=== PATIENT | male | born 1965 | race Caucasian/White ===

== ENCOUNTER 2017-01-29 02:42 | Emergency (ER) | payer OTHER ==
[2017-01-29] MEDS ORDERED: Famotidine 20 MG/2 ML SDV IVPUSH ONE (03:08)
[2017-01-29] MEDS ORDERED: Sodium Chloride 0.9% 10 ML Syringe FLUSH PRN (03:08)
--- NOTE | 2017-01-29 03:08 | EDM.PDOC ---
ED HPI GENERAL MEDICAL PROBLEM - General Chief Complaint: General Stated Complaint: 'heart racing' Time Seen by Provider: 01/29/17 03:00 Source of Information: Reports: Patient, Family (), Old Records ([facility] chart/EMR) History Limitations: Reports: No Limitations - History of Present Illness INITIAL COMMENTS - FREE TEXT/NARRATIVE: Patient was brought to the emergency room via private automobile by his for evaluation of sudden onset tachycardia with symptoms waking him up at about 01:30 a.m. this morning. His tachycardia lasted for about 1-1/2 hours and had resolved immediately prior to arrival to our facility. He has had similar type symptoms for the last 1-2 weeks with increased frequency during the last 3-4 days with symptoms occurring on a daily basis and lasting between 10 minutes and 4 hours at a time. He did have an episode of tachycardia on 12/06/15 secondary to stress factors with evaluation in this facility by me at that time. The patient denies any chest pain/pressure, dizziness, orthostasis, orthopnea, diaphoresis, paresthesias, recent decreased exercise tolerance, or any other anginal-type symptoms either today or with any of the episodes during the last couple of weeks. He has not used any recent cold preparations, increased his caffeine intake, etc.. Patient has had problems with nonspecific headaches since 12/25/16 with previous extensive workup as below, however no headache this evening. No recent history of abdominal pain, heartburn, nausea, diarrhea, melena, gross hematochezia, or any food intolerance, including fatty foods, etc.. The patient also denies any recent fever, cough, wheezing, dyspnea , etc.. Note that a cardiac murmur was diagnosed about 3 weeks ago with echocardiogram conducted yesterday in this facility Onset: Today, Sudden Onset Date: 01/29/17 Onset Time: 01:30 Duration: Resolved Prior to Arrival Location: Reports: Other (No pain) Improves with: Reports: None Worsens with: Reports: None Context: Reports: Other (As above) Associated Symptoms: Denies: Confusion, Chest Pain, Cough, Diaphoresis, Fever/ Chills, Headaches, Loss of Appetite, Malaise, Nausea/Vomiting, Rash, Seizure, Shortness of Breath, Syncope, Weakness Treatments LICENSED HOME INSPECTOR: Reports: Other (see below) (None) - Related Data Allergies Allergy/AdvReac Type Severity Reaction Status Date / Time No Known Allergies Allergy Verified 01/29/17 02:47 Home Meds: Home Meds Cyanocobalamin (Vitamin B12) [Vitamin B12] 1,000 mcg PO DAILY 12/06/15 [History] Simvastatin [Zocor] 20 mg PO BEDTIME 12/06/15 [History] Levothyroxine Sodium [Synthroid] 137 mcg PO ACBREAKFAST #60 tab 12/07/15 [Rx] Past Medical History HEENT History: Reports: Allergic Rhinitis. Denies: Cataract, Glaucoma, Hard of Hearing, Head, Impaired Vision, Macular Degeneration, Retinal Detachment Cardiovascular History: Reports: Arrhythmia, Heart Murmur, High Cholesterol, Hypertension, Other (See Below). Denies: Afib, Aneurysm, Blood Clots/VTE/DVT, CAD, Heart Failure, NE, PVD, Syncope Other Cardiovascular History: First degree AV block, incomplete right bundle- branch block, PVCs, dyslipidemia, varicose veins, heart murmur diagnosed in November 2016 Respiratory History: Reports: COPD, Other (See Below). Denies: Asthma, Intubation, Difficult, Intubation, Previous, PE, Pneumothorax, Sleep Apnea Other Respiratory History: COPD by chest x-ray Gastrointestinal History: Reports: Gastritis, Hemorrhoids, PUD, Other (See Below ). Denies: Celiac Disease, Cholelithiasis, Chronic Constipation, Chronic Diarrhea, Colon Polyp, Fecal Incontinence, GERD, GI Bleed, Hepatitis, Hiatal Hernia, Inflammatory Bowel Disease, Irritable Bowel Syndrome, Jaundice, Pancreatitis Other Gastrointestinal History: History of benign gastric mass/carcinoid with ulceration by EGD on 11/21/06 with additional gastritis noted Genitourinary History: Reports: None. Denies: BPH, Chronic Renal Insuffiency, Renal Calculus, STD, Urinary Incontinence, UTI, Recurrent Musculoskeletal History: Reports: Back Pain, Chronic, Fracture, Neck Pain, Chronic, Osteoarthritis, Other (See Below). Denies: Arthritis, Gout, RA, SLE Other Musculoskeletal History: Distal Phalangeal fractures of digits #1 and 2 of the right foot on 12/13/10, L1-L3 disc herniations, lumbarization of S1 Neurological History: Reports: Headaches, Chronic, Other (See Below). Denies: Cerebral Aneurysms, Concussion, CVA, Head Trauma, Migraines, MS, Seizure, TIA, Vertigo Other Neuro History: History of refractory chronic headaches/tension headaches since 12/25/16 with extensive previous workup including CT scans, MRI/MRA and neurological consultation Psychiatric History: Reports: Anxiety, Depression. Denies: Abuse, Victim of, ADD, ADHD, Addiction, Psych Hospitalization(s), PTSD, Suicide Attempt, Suicidal Ideation Endocrine/Metabolic History: Reports: Hypothyroidism. Denies: Diabetes, Type I , Diabetes, Type II, IDDM Hematologic History: Reports: B12 Deficiency. Denies: Anemia, Blood Transfusion (s) Immunologic History: Reports: None. Denies: AIDS, SLE Oncologic (Cancer) History: Reports: None. Denies: Basal Cell Carcinoma, Hodgkin's Lymphoma, Leukemia, Lymphoma, Malignant Melanoma, Non-Hodgkin's Lymphoma Dermatologic History: Reports: None. Denies: Eczema, Psoriasis - Infectious Disease History Infectious Disease History: Reports: Chicken Pox. Denies: C-Difficile, Measles , Meningitis, Mononucleosis, MRSA, Mumps, Pertussis (Whooping Cough), Rubella, Scarlet Fever, Shingles, VRE - Past Surgical History Head Surgeries/Procedures: Reports: None HEENT Surgical History: Reports: Oral Surgery, Other (See Below). Denies: Adenoidectomy, Cataract Surgery, Eye Surgery, Laser Surgery, LASIK, Myringotomy w Tube(s), Naso-Sinus Surgery, Tonsillectomy Other HEENT Surgeries/Procedures: [place] teeth extraction 4 at about age 28 Cardiovascular Surgical History: Reports: None. Denies: Varicose, Vascular Surgery Respiratory Surgical History: Reports: None. Denies: Thoracentesis GI Surgical History: Reports: Appendectomy, Colonoscopy, EGD, Hernia, Inguinal, Other (See Below) Other GI Surgeries/Procedures: Last EGD and colonoscopy in November 2016 with previous evaluation on 11/21/06, right inguinal hernia repair in about 1987, appendectomy in June 1988, abdominal exploratory surgery in 2006 for gastric carcinoid removal which was actually removed via an EGD Male Surgical History: Reports: Circumcision, Other (See Below) Other Male Surgeries/Procedures: Circumcision as an Endocrine Surgical History: Reports: None. Denies: Thyroid Biopsy Neurological Surgical History: Reports: None. Denies: C-Spine, Discectomy, Intracranial, Laminectomy, Lumbar Spine, Spinal Fusion, Vertebroplasty Musculoskeletal Surgical History: Reports: None. Denies: Arthroscopic Procedure , Carpal Tunnel, Ganglion Cyst, Joint Replacement, ORIF, Shoulder Surgery Oncologic Surgical History: Reports: None Dermatological Surgical History: Reports: None - Past Imaging History Past Imaging History: Reports: Cardiac Echo (01/28/17), CAT Scan (CT of the head on 12/26/16), MRA (MRA/MRI of head, neck, and back in December 2016 as workup for headaches), MRI (As above), PFT (Negative PFTs on 07/04/06), Stress Testing (Negative Cardiolite stress test on 07/18/06 with ejection fraction of 54 %), Ultrasound (Gallbladder ultrasound on 12/08/12) Social & Family History - Family History Cardiac: Reports: Bypass, CAD, High Cholesterol, Hypertension, NE, Other (See Below) Other Cardiac Family History: Father with CABG at age 62, brother with possible NE versus Prinzmetal angina at age 40, 2 paternal uncles with fatal MIs in their 50s to 60s, hypertension and hyperlipidemia in father and brother Neurological: Reports: Other (See Below) Other Neurological Family History: Son with cerebral palsy secondary to prematurity Endocrine/Metabolic: Reports: Diabetes, type II, Hypothyroidism, IDDM, Other ( See Below) Other Endocrine/Metabolic Family History: AODM in father and brother, paternal grandmother with IDDM, sister with hypothyroidism Oncologic: Reports: Breast, Prostate, Skin, Other (See Below) Other Oncologic Family History: Maternal uncle with prostate cancer in his 60s, maternal grandmother with breast cancer in her 60s, father with unknown type of skin cancer at age 67, father with liposarcoma at age 68 which was fatal at age 70 - Tobacco Use Smoking Status *Q: Former Smoker Tobacco Use Within Last Twelve Months: No Years of Tobacco use: 3 Packs/Tins Daily: 1 Used Tobacco, but Quit: Yes Month Tobacco Last Used: One half to one pack per day between ages 15 and 18 Smoking Cessation Information Provided To Patient: No Second Hand Smoke Exposure: No Second Hand Smoke Education Provided: No - Caffeine Use Caffeine Use: Reports: Soda (2 sodas per day). Denies: Coffee, Energy Drinks, Tea - Alcohol Use Alcohol Use History: Yes Days Per Week of Alcohol Use: 1 (No previous DWIs, problems with alcohol abuse, etc.) Number of Drinks Per Day: 3 (Usually beer) Total Drinks Per Week: 3 Alcohol Use in Last Twelve Months: Yes Alcohol Use Frequency: Socially - Recreational Drug Use Recreational Drug Use: No Drug Use in Last 12 Months: No Recreational Drug Type: Denies: Amphetamines (Speed), Cocaine, Heroin, Inhalants (Glues, Solvents, Aerosols), LSD (Acid), Marijuana/Hashish, Methamphetamine, Morphine - Living Situation & Occupation Living situation: Reports: (1987, 2 children), with Family () 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 Denies: Fever, Chills, Malaise, Weakness, Fatigue, Night Sweats, Diaphoresis, Decreased Appetite, Weight Gain HEENT: Reports: No Symptoms. Denies: Contact Lenses, Dental Pain, Ear Pain, Eye Discharge, Glasses, Hearing Loss, Nose Pain, Rhinitis, Sinus Problem, Throat Pain, Throat Swelling, Vertigo, Vision Change Respiratory: Reports: No Symptoms. Denies: Shortness of Breath, Wheezing, Pleuritic Chest Pain, Cough Cardiovascular: Reports: Palpitations. Denies: Chest Pain, Blood Pressure Problem, Dyspnea on Exertion, Edema, Lightheadedness, Orthopnea, PND, Syncope Endocrine: Reports: No Symptoms. Denies: Fatigue GI/Abdominal: Reports: No Symptoms. Denies: Abdominal Pain, Anorexia, Black Stool, Bloody Stool, Constipation, Diarrhea, Decreased Appetite, Difficulty Swallowing, Distension, Flatus, Hematemesis, Hematochezia, Melena, Nausea, Stool Incontinence, Vomiting : Reports: No Symptoms. Denies: Discharge, Dysuria, Flank Pain, Frequency, Hematuria, Incontinence, Pain, Urinary Retention Musculoskeletal: Reports: No Symptoms. Denies: Neck Pain, Shoulder Pain, Arm Pain, Back Pain, Leg Pain, Joint Swelling Skin: Reports: Rash (Nonspecific white patchy rash on face during the last week) . Denies: Cyanosis, Jaundice, Mottled, Diaphoresis, Wound Neurological: Reports: No Symptoms. Denies: Confusion, Dizziness, Headache, Numbness, Paresthesia, Seizure, Syncope, Tingling, Trouble Speaking, Difficulty Walking, Weakness, Change in Speech Psychiatric: Reports: Anxiety, Depression. Denies: Agitation, Confusion, Hallucinations, Suicidal Ideation Hematologic/Lymphatic: Reports: No Symptoms Immunologic: Reports: No Symptoms ED EXAM, GENERAL - Physical Exam Exam: See Below Exam Limited By: No Limitations General Appearance: Alert, WD/WN, No Apparent Distress, Anxious (Mild to moderate) Eye Exam: Bilateral Eye: EOMI, Normal Inspection (No nystagmus), PERRL Ears: Normal External Exam, Normal Canal, Hearing Grossly Normal, Normal TMs Nose: Normal Inspection, Normal Mucosa, No Blood Throat/Mouth: Normal Inspection, Normal Lips, Normal Teeth, Normal Gums, Normal Oropharynx, Normal Voice, No Airway Compromise. No: Dysphagia, Perioral Cyanosis Head: Atraumatic, Normocephalic. No: Facial Swelling, Facial Tenderness, Sinus Tenderness Neck: Supple, Non-Tender, Full Range of Motion, Carotid Bruit (Mild bilateral carotid bruits versus transmitted heart sounds). No: Lymphadenopathy (L), Lymphadenopathy (R), Thyromegaly Respiratory/Chest: No Respiratory Distress, Lungs Clear, Normal Breath Sounds, No Accessory Muscle Use, Chest Non-Tender. No: Pleural Rub, Retractions Cardiovascular: Normal Peripheral Pulses, Regular Rate, Rhythm, No Edema, No Gallop, No JVD, No Rub, Systolic Murmur (1/6 SULEIMAN of the aortic and mitral valves ). No: Gallop/S3, Gallop/S4, Friction Rub Peripheral Pulses: 2+: Radial (L), Radial (R), Dorsalis Pedis (L), Dorsalis Pedis (R) GI/Abdominal: Normal Bowel Sounds, Soft, Non-Tender, No Organomegaly, No Distention, No Abnormal Bruit, No Mass, Pelvis Stable, Other (Large midline abdominal scar). No: Guarding (Male) Exam: Deferred Rectal (Males) Exam: Deferred Back Exam: Normal Inspection, Full Range of Motion. No: CVA Tenderness (L), CVA Tenderness (R), Muscle Spasm Extremities: Normal Inspection, Normal Range of Motion, Non-Tender, No Pedal Edema, Normal Capillary Refill. No: Merry's Sign Neurological: Alert, Oriented, CN II-XII Intact, Normal Cognition, Normal Gait, Normal Reflexes (Negative Babinski's), No Motor/Sensory Deficits Psychiatric: Anxious (Mild to moderate), Depressed Mood (Borderline) Skin Exam: Warm, Dry, Intact, Normal Color, No Rash Lymphatic: No Adenopathy EKG INTERPRETATION EKG Date: 01/29/17 Time: 03:15 Rhythm: NSR Rate (Beats/Min): 80 Levan: Normal (Left cardiac axis) P-Wave: Present (Mild diffuse biphasic P waves with poor R-wave progression in the anterior leads) QRS: Wide (QRS interval of 0.10 seconds representing repolarization changes with T-wave inversion in leads 3 and V1 with possible left ventricular hypertrophy by voltage) ST-T: Normal QT: Normal MI/PQ Interval: 0.17 seconds Comparison: No Change (Since last EKG on 12/06/15) EKG Interpretation Comments: 1. No acute ischemic changes 2. Repolarization changes 3. Left ventricular hypertrophy by voltage Course - Vital Signs Last Recorded V/S: Last Vital Signs Temp 36.6 C 01/29/17 02:43 Pulse 84 01/29/17 03:45 Resp 16 01/29/17 03:45 BP 144/94 H 01/29/17 03:45 Pulse Ox 98 01/29/17 03:45 - Orders/Labs/Meds Orders: Active Orders 24 hr Category Date Time Status Cardiac Monitoring [RC] . DIRECTED Care 01/29/17 03:08 Active EKG Documentation Completion [RC] ASDIRECTED Care 01/29/17 03:08 Active Peripheral IV Care [RC] . DIRECTED Care 01/29/17 03:08 Active Pulse Oximetry [RC] CONTINUOUS Care 01/29/17 03:08 Active Up With Assistance [RC] PFP Care 01/29/17 03:08 Active Vital Signs [RC] PFP Care 01/29/17 03:08 Active Nothing per Oral Now Diet [DIET] Diet 01/29/17 Breakfast Active Chest 1V Frontal [CR] Stat Exams 01/29/17 03:08 Ordered Sodium Chloride 0.9% [Saline Flush] Med 01/29/17 03:08 Active 10 ml FLUSH ASDIRECTED PRN Obtain Past Medical Record [OM.PC] Urgent Oth 01/29/17 03:08 Active Peripheral IV Insertion Adult [OM.PC] Stat Oth 01/29/17 03:08 Ordered Resuscitation Status Stat Resus Stat 01/29/17 03:08 Ordered EKG 12 Lead [EK] Stat Ther 01/29/17 03:08 Ordered Medication Orders Sodium Chloride (Saline Flush) 10 ml FLUSH ASDIRECTED PRN PRN Reason: Keep Vein Open Last Admin: 01/29/17 03:33 Dose: 10 ml Labs: Laboratory Tests 01/29/17 01/29/17 01/29/17 Range/Units 03:08 03:15 03:15 WBC 6.7 (4.0-10.2) K/uL RBC 4.43 (4.33-5.41) M/uL Hgb 14.1 (13.1-16.8) g/dL Hct 39.6 (39.0-49.0) % MCV 89.4 (84.0-98.0) fL MCH 31.8 (28.2-33.3) pg MCHC 35.6 (31.7-36.0) g/dL RDW 12.6 (11.2-14.1) % Plt Count 214 (150-350) K/uL Neut % (Auto) 55.3 (45.0-80.0) % Lymph % (Auto) 29.6 (10.0-50.0) % [place] % (Auto) 10.0 (2.0-14.0) % Eos % (Auto) 4.2 (0.0-5.0) % Baso % (Auto) 0.9 (0.0-2.0) % Neut # (Auto) 3.72 (1.40-7.00) K/uL Lymph # (Auto) 1.99 (0.50-3.50) K/uL [place] # (Auto) 0.67 (0.00-1.00) K/uL Eos # (Auto) 0.28 (0.00-0.50) K/uL Baso # (Auto) 0.06 (0.00-0.20) K/uL PT 11.7 (9.8-11.7) SEC INR 1.1 APTT 26.5 (22.1-29.8) SEC D-Dimer, Quantitative (0-400) ng/mL Sodium 143 (136-145) mmol/L Potassium 3.5 (3.5-5.1) mmol/L Chloride 106 (98-107) mmol/L Carbon Dioxide 26.3 (21.0-32.0) mmol/L BUN 15 (7-18) mg/dL Creatinine 1.03 (0.51-1.17) mg/dL Est Cr Clr Drug Dosing 91.04 mL/min Estimated GFR (MDRD) > 60 mL/min Glucose 88 (74-106) mg/dL Lactic Acid (0.4-2.0) mmol/L Uric Acid 5.6 (2.6-7.2) mg/dL Calcium 8.7 (8.5-10.1) mg/dL Magnesium 2.0 (1.8-2.4) mg/dL Total Bilirubin 0.3 (0.2-1.0) mg/dL AST 14 L (15-37) U/L ALT 22 (12-78) U/L Alkaline Phosphatase 80 (46-116) IU/L Creatine Kinase 108 (26-308) U/L Creatine Kinase Index 0.9 (0.0-2.5) % CK-MB (CK-2) 1.00 (0.00-3.60) ng/mL Troponin I 0.000 (0.000-0.056) ng/mL NT-Pro-B Natriuret Pep 36 (0-125) pg/mL Total Protein 7.0 (6.4-8.2) g/dL Albumin 3.6 (3.4-5.0) g/dL TSH, Ultra Sensitive 4.564 H (0.358-3.740) mIU/mL Ethyl Alcohol 0.011 (0.000-0.080) g/dL 01/29/17 01/29/17 Range/Units 03:15 03:30 WBC (4.0-10.2) K/uL RBC (4.33-5.41) M/uL Hgb (13.1-16.8) g/dL Hct (39.0-49.0) % MCV (84.0-98.0) fL MCH (28.2-33.3) pg MCHC (31.7-36.0) g/dL RDW (11.2-14.1) % Plt Count (150-350) K/uL Neut % (Auto) (45.0-80.0) % Lymph % (Auto) (10.0-50.0) % [place] % (Auto) (2.0-14.0) % Eos % (Auto) (0.0-5.0) % Baso % (Auto) (0.0-2.0) % Neut # (Auto) (1.40-7.00) K/uL Lymph # (Auto) (0.50-3.50) K/uL [place] # (Auto) (0.00-1.00) K/uL Eos # (Auto) (0.00-0.50) K/uL Baso # (Auto) (0.00-0.20) K/uL PT (9.8-11.7) SEC INR APTT (22.1-29.8) SEC D-Dimer, Quantitative < 100 (0-400) ng/mL Sodium (136-145) mmol/L Potassium (3.5-5.1) mmol/L Chloride (98-107) mmol/L Carbon Dioxide (21.0-32.0) mmol/L BUN (7-18) mg/dL Creatinine (0.51-1.17) mg/dL Est Cr Clr Drug Dosing mL/min Estimated GFR (MDRD) mL/min Glucose (74-106) mg/dL Lactic Acid 1.7 (0.4-2.0) mmol/L Uric Acid (2.6-7.2) mg/dL Calcium (8.5-10.1) mg/dL Magnesium (1.8-2.4) mg/dL Total Bilirubin (0.2-1.0) mg/dL AST (15-37) U/L ALT (12-78) U/L Alkaline Phosphatase (46-116) IU/L Creatine Kinase (26-308) U/L Creatine Kinase Index (0.0-2.5) % CK-MB (CK-2) (0.00-3.60) ng/mL Troponin I (0.000-0.056) ng/mL NT-Pro-B Natriuret Pep (0-125) pg/mL Total Protein (6.4-8.2) g/dL Albumin (3.4-5.0) g/dL TSH, Ultra Sensitive (0.358-3.740) mIU/mL Ethyl Alcohol (0.000-0.080) g/dL Meds: Medications Generic Name Dose Route Start Last Admin Trade Name Freq PRN Reason Stop Dose Admin Sodium Chloride 10 ml 10/31/17 03:08 01/29/17 03:33 Saline Flush FLUSH 10 ml ASDIRECTED PRN Administration Keep Vein Open Discontinued Medications Generic Name Dose Route Start Last Admin Trade Name Josselyn PRN Reason Stop Dose Admin Famotidine 40 mg 01/29/17 03:08 01/29/17 03:32 Pepcid IVPUSH 01/29/17 03:09 Not Given ONETIME ONE - Radiology Interpretation Free Text/Narrative:: monitoring manager shows normal sinus rhythm with heart rate in the 70s to 80s with no ectopy or arrhythmia Chest x-ray, portable, shows evidence of borderline pulmonary obstructive disease with possible pulmonary hypertension versus centralized CHF. No pulmonary infiltrates, cardiomegaly, pneumothorax, or CHF. Mild prominence of the proximal aortic arch. Departure - Departure Time of Disposition: 04:25 Disposition: Home, Self-Care 01 Condition: Good Clinical Impression: Tachycardia, Dyslipidemia, Hypothyroidism (acquired), Mixed anxiety depressive disorder, Cardiac murmur Hypertension Qualifiers: Hypertension type: essential hypertension Qualified Code(s): I10 - Essential ( primary) hypertension COPD (chronic obstructive pulmonary disease) Qualifiers: COPD type: emphysema Emphysema type: panlobular Qualified Code(s): J43.1 - Panlobular emphysema Osteoarthritis Qualifiers: Osteoarthritis location: multiple joints Osteoarthritis type: primary Qualified Code(s): M15.0 - Primary generalized (osteo)arthritis Tension headache, chronic Qualifiers: Intractability: not intractable Qualified Code(s): G44.229 - Chronic tension- type headache, not intractable - Discharge Information Referrals: Danielle Christopher PA-C [Primary Care Provider] - Forms: ED Department Discharge Additional Instructions: 1. Followup with your regular provider in 7-10 days as directed for reevaluation and recommendation of possible increase of your current Synthroid therapy, trial with low-dose Tenormin for your blood pressure and fast heart rate, and further blood studies for your previous carcinoid tumor secondary to recent chronic headaches. 2. Fall and injury precautions as discussed 3. Verify that all your providers including neurologist, etc. are aware of your previous carcinoid diagnosis - Problem List & Annotations (1) Tachycardia SNOMED Code(s): 9937879 Code(s): R00.0 - TACHYCARDIA, UNSPECIFIED Status: Acute Priority: High Current Visit: Yes Onset Date: 12/07/15 Annotation/Comment:: No evidence of arrhythmia during observation in this facility. TSH is mildly elevated as below. Various therapeutic options were discussed with the patient, including initiation of low-dose Tenormin secondary to his newly diagnosed cardiac murmur and recurrent tachycardia as above. He did not wish to initiate any additional medical therapy at this time, although this will be considered at his follow-up visit with his regular provider as per discharge instructions. Further workup, including Holter monitor versus event monitor, repeat Cardiolite stress test, cardiology referral, etc. depending on his clinical course. He does have a strong family history of heart disease. Also note that he does have a previous history of benign carcinoid tumor with consideration of further workup, including blood studies, etc. especially in light of his problems with recent headaches, tachycardia, etc. (2) Cardiac murmur SNOMED Code(s): 67506871 Code(s): R01.1 - CARDIAC MURMUR, UNSPECIFIED Status: Chronic Priority: Medium Current Visit: Yes Annotation/Comment:: Probable aortic valve stenosis and mitral valve insufficiency by clinical exam with echocardiogram performed on 01/28/17 with results pending at this time. Continue close follow- up by her regular providers (3) Hypertension SNOMED Code(s): 23381801 Code(s): I10 - ESSENTIAL (PRIMARY) HYPERTENSION Status: Acute Priority: Medium Current Visit: Yes Onset Date: 12/06/15 Annotation/Comment:: Note previous history of hypertension, however no previous medical therapy. Low-dose Tenormin recommended as above. Moderately elevated blood pressures today in the emergency room possibly secondary to his anxiety. Continue to observe his blood pressures closely by his regular providers Qualifiers: Hypertension type: essential hypertension Qualified Code(s): I10 - Essential (primary) hypertension (4) Mixed anxiety depressive disorder SNOMED Code(s): 800525303 Code(s): F41.8 - OTHER SPECIFIED ANXIETY DISORDERS Status: Acute Priority : High Current Visit: Yes Onset Date: 12/06/15 Annotation/Comment:: The patient may benefit from medical treatment both for treatment of his anxiety depression and as prophylaxis for his chronic tension headaches. He is under significant increased stress secondary to his recent headaches, including missing work. Patient did not wish to start any additional medications at this time, however does agree to discuss this with his regular provider. Emotional support was provided. (5) Tension headache, chronic Status: Chronic Priority: Medium Current Visit: Yes Onset Date: 12/25/16 Annotation/Comment:: History of refractory chronic probable tension headaches since November with extensive recent negative workup, including multiple MRI/ MRAs, neurology consultation, etc. as above. Headaches seem to have improved over the last week with patient able to return to work with no headache today. He agrees to notify his neurologist concerning his previous carcinoid diagnosis. Continue to observe closely by his regular providers, etc.. He may benefit from prophylactic headache medications including anti-anxiety/ antidepressant medication, low-dose Tenormin, etc. Qualifiers: Intractability: not intractable Qualified Code(s): G44.229 - Chronic tension-type headache, not intractable (6) COPD (chronic obstructive pulmonary disease) SNOMED Code(s): 52500030 Code(s): J44.9 - CHRONIC OBSTRUCTIVE PULMONARY DISEASE, UNSPECIFIED Status : Chronic Priority: Medium Current Visit: Yes Annotation/Comment:: No recent fever, bronchitic-type symptoms, etc. Patient has not needed any type of therapy in the past. Note previous negative PFTs despite chest x-ray findings. Continue to observe for now Qualifiers: COPD type: emphysema Emphysema type: panlobular Qualified Code(s): J43.1 - Panlobular emphysema (7) Dyslipidemia SNOMED Code(s): 092549044 Code(s): E78.5 - HYPERLIPIDEMIA, UNSPECIFIED Status: Chronic Priority: Medium Current Visit: Yes Annotation/Comment:: Continue current medical therapy (8) Hypothyroidism (acquired) SNOMED Code(s): 076750911 Code(s): E03.9 - HYPOTHYROIDISM, UNSPECIFIED Status: Chronic Priority: Medium Current Visit: Yes Annotation/Comment:: TSH somewhat elevated today. Synthroid should be increased somewhat, which would also be beneficial for his anxiety depression disorder. He did not wish to have any medication changes at this time with this to be discussed further at his follow-up visit as per discharge instructions (9) Osteoarthritis SNOMED Code(s): 851050972 Code(s): M19.90 - UNSPECIFIED OSTEOARTHRITIS, UNSPECIFIED SITE Status: Chronic Priority: Medium Current Visit: Yes Annotation/Comment:: Stable by history Qualifiers: Osteoarthritis location: multiple joints Osteoarthritis type: primary Qualified Code(s): M15.0 - Primary generalized (osteo)arthritis - Problem List Review Problem List Initiated/Reviewed/Updated: Yes - My Orders Last 24 Hours: My Active Orders 01/29/17 03:08 Cardiac Monitoring [RC] . DIRECTED EKG Documentation Completion [RC] ASDIRECTED Peripheral IV Care [RC] . DIRECTED Pulse Oximetry [RC] CONTINUOUS Up With Assistance [RC] PFP Vital Signs [RC] PFP Chest 1V Frontal [CR] Stat Sodium Chloride 0.9% [Saline Flush] 10 ml FLUSH ASDIRECTED PRN Obtain Past Medical Record [OM.PC] Urgent Peripheral IV Insertion Adult [OM.PC] Stat Resuscitation Status Stat EKG 12 Lead [EK] Stat 01/29/17 Breakfast Nothing per Oral Now Diet [DIET] - Assessment/Plan Last 24 Hours: My Active Orders 01/29/17 03:08 Cardiac Monitoring [RC] . DIRECTED EKG Documentation Completion [RC] ASDIRECTED Peripheral IV Care [RC] . DIRECTED Pulse Oximetry [RC] CONTINUOUS Up With Assistance [RC] PFP Vital Signs [RC] PFP Chest 1V Frontal [CR] Stat Sodium Chloride 0.9% [Saline Flush] 10 ml FLUSH ASDIRECTED PRN Obtain Past Medical Record [OM.PC] Urgent Peripheral IV Insertion Adult [OM.PC] Stat Resuscitation Status Stat EKG 12 Lead [EK] Stat 01/29/17 Breakfast Nothing per Oral Now Diet [DIET] Assessment:: As above Plan: As above. Extensive precautions were given to the patient and his , who are in agreement with the treatment plan. See Patient Instructions for further treatment and plan.
[2017-01-29 03:46] LABS: CHLORIDE,CL 106 mmol/L (98-107); SODIUM,NA 143 mmol/L (136-145)
[2017-01-29 05:08] VITALS: BP 137/90
== END 2017-01-29 04:20 | disposition home or self-care (01) ==
LOC: LL.ED 02:42
DX: R00.0 Tachycardia, unspecified (principal); E78.5 Hyperlipidemia, unspecified; E03.9 Hypothyroidism, unspecified; F41.8 Other specified anxiety disorders; R01.1 Cardiac murmur, unspecified; I10 Essential (primary) hypertension; J43.9 Emphysema, unspecified; M15.0 Primary generalized (osteo)arthritis; G44.229 Chronic tension-type headache, not intractable; Z87.891 Personal history of nicotine dependence
CPT/HCPCS: 36000; 36415; 71010; 80053; 82550; 82553; 83605; 83735; 83880; 84443; 84484; 84550; 85025; 85379; 85610; 85730; 93005; 99285; G0480; J7050

== ENCOUNTER 2019-06-28 12:20 | Observation (INO) | payer BC, OTHER ==
--- NOTE | 2019-06-28 13:25 | EDM.PDOC ---
ED HPI GENERAL MEDICAL PROBLEM - General Chief Complaint: General Stated Complaint: weakness, tongue swelling Time Seen by Provider: 06/28/19 12:57 Source of Information: Reports: Patient History Limitations: Reports: No Limitations - History of Present Illness INITIAL COMMENTS - FREE TEXT/NARRATIVE: Patient comes to ER with complaint of headache/weakness/muscle aches. Headache started last night. Developed sores along sides of tongue this morning. No one else sick at home. No fevers/chills. No ear pain/sore throat/nasal congestion. No cough/wheeze/SOB/respiratory changes. No chest pain/palpitations. No GI changes/nausea/emesis/loose stools. Ate breakfast this morning. No changes. No focal neuro changes/one sided weakness/paresthesias. Took Claritin prior to arrival. calves,lower back,togue Pain Score (Numeric/FACES): 5 - Related Data Allergies Allergy/AdvReac Type Severity Reaction Status Date / Time No Known Allergies Allergy Verified 06/28/19 12:29 Home Meds: Home Meds Cyanocobalamin (Vitamin B12) [Vitamin B12] 1,000 mcg PO DAILY 12/06/15 [History] Simvastatin [Zocor] 20 mg PO BEDTIME 12/06/15 [History] Acetaminophen [Tylenol] 650 mg PO Q6HR PRN 06/28/19 [History] Levothyroxine Sodium [Synthroid] 125 mcg PO DAILY 06/28/19 [History] Richardson-3/DHA/Epa/Fish Oil [Fish Oil 1,000 mg Softgel] 1 each PO DAILY 06/28/19 [ History] Past Medical History HEENT History: Reports: Allergic Rhinitis. Denies: Cataract, Glaucoma, Hard of Hearing, Head, Impaired Vision, Macular Degeneration, Retinal Detachment Cardiovascular History: Reports: Arrhythmia, Heart Murmur, High Cholesterol, Hypertension, Other (See Below). Denies: Afib, Aneurysm, Blood Clots/VTE/DVT, CAD, Heart Failure, MD, PVD, Syncope Other Cardiovascular History: First degree AV block, incomplete right bundle- branch block, PVCs, dyslipidemia, varicose veins, heart murmur diagnosed in November 2016 Respiratory History: Reports: COPD, Other (See Below). Denies: Asthma, Intubation, Difficult, Intubation, Previous, PE, Pneumothorax, Sleep Apnea Other Respiratory History: COPD by chest x-ray Gastrointestinal History: Reports: Gastritis, Hemorrhoids, PUD, Other (See Below ). Denies: Celiac Disease, Cholelithiasis, Chronic Constipation, Chronic Diarrhea, Colon Polyp, Fecal Incontinence, GERD, GI Bleed, Hepatitis, Hiatal Hernia, Inflammatory Bowel Disease, Irritable Bowel Syndrome, Jaundice, Pancreatitis Other Gastrointestinal History: History of benign gastric mass/carcinoid with ulceration by EGD on 11/21/06 with additional gastritis noted Genitourinary History: Reports: None. Denies: BPH, Chronic Renal Insuffiency, Renal Calculus, STD, Urinary Incontinence, UTI, Recurrent Musculoskeletal History: Reports: Back Pain, Chronic, Fracture, Neck Pain, Chronic, Osteoarthritis, Other (See Below). Denies: Arthritis, Gout, RA, SLE Other Musculoskeletal History: Distal Phalangeal fractures of digits #1 and 2 of the right foot on 12/13/10, L1-L3 disc herniations, lumbarization of S1 Neurological History: Reports: Headaches, Chronic, Other (See Below). Denies: Cerebral Aneurysms, Concussion, CVA, Head Trauma, Migraines, MS, Seizure, TIA, Vertigo Other Neuro History: History of refractory chronic headaches/tension headaches since 12/25/16 with extensive previous workup including CT scans, MRI/MRA and neurological consultation Psychiatric History: Reports: Anxiety, Depression. Denies: Abuse, Victim of, ADD, ADHD, Addiction, Psych Hospitalization(s), PTSD, Suicide Attempt, Suicidal Ideation Endocrine/Metabolic History: Reports: Hypothyroidism. Denies: Diabetes, Type I , Diabetes, Type II, IDDM Hematologic History: Reports: B12 Deficiency. Denies: Anemia, Blood Transfusion (s) Immunologic History: Reports: None. Denies: AIDS, SLE Oncologic (Cancer) History: Reports: None. Denies: Basal Cell Carcinoma, Hodgkin's Lymphoma, Leukemia, Lymphoma, Malignant Melanoma, Non-Hodgkin's Lymphoma Dermatologic History: Reports: None. Denies: Eczema, Psoriasis - Infectious Disease History Infectious Disease History: Reports: Chicken Pox. Denies: C-Difficile, Measles , Meningitis, Mononucleosis, MRSA, Mumps, Pertussis (Whooping Cough), Rubella, Scarlet Fever, Shingles, VRE - Past Surgical History Head Surgeries/Procedures: Reports: None HEENT Surgical History: Reports: Oral Surgery, Other (See Below). Denies: Adenoidectomy, Cataract Surgery, Eye Surgery, Laser Surgery, LASIK, Myringotomy w Tube(s), Naso-Sinus Surgery, Tonsillectomy Other HEENT Surgeries/Procedures: [place] teeth extraction 4 at about age 28 Cardiovascular Surgical History: Reports: None. Denies: Varicose, Vascular Surgery Respiratory Surgical History: Reports: None. Denies: Thoracentesis GI Surgical History: Reports: Appendectomy, Colonoscopy, EGD, Hernia, Inguinal, Other (See Below) Other GI Surgeries/Procedures: Last EGD and colonoscopy in November 2016 with previous evaluation on 11/21/06, right inguinal hernia repair in about 1987, appendectomy in June 1988, abdominal exploratory surgery in 2006 for gastric carcinoid removal which was actually removed via an EGD Male Surgical History: Reports: Circumcision, Other (See Below) Other Male Surgeries/Procedures: Circumcision as an Endocrine Surgical History: Reports: None. Denies: Thyroid Biopsy Neurological Surgical History: Reports: None. Denies: C-Spine, Discectomy, Intracranial, Laminectomy, Lumbar Spine, Spinal Fusion, Vertebroplasty Musculoskeletal Surgical History: Reports: None. Denies: Arthroscopic Procedure , Carpal Tunnel, Ganglion Cyst, Joint Replacement, ORIF, Shoulder Surgery Oncologic Surgical History: Reports: None Dermatological Surgical History: Reports: None - Past Imaging History Past Imaging History: Reports: Cardiac Echo (01/28/17), CAT Scan (CT of the head on 12/26/16), MRA (MRA/MRI of head, neck, and back in December 2016 as workup for headaches), MRI (As above), PFT (Negative PFTs on 07/04/06), Stress Testing (Negative Cardiolite stress test on 07/18/06 with ejection fraction of 54 %), Ultrasound (Gallbladder ultrasound on 12/08/12) Social & Family History - Family History Cardiac: Reports: Bypass, CAD, High Cholesterol, Hypertension, MD, Other (See Below) Other Cardiac Family History: Father with CABG at age 62, brother with possible MD versus Prinzmetal angina at age 40, 2 paternal uncles with fatal MIs in their 50s to 60s, hypertension and hyperlipidemia in father and brother Neurological: Reports: Other (See Below) Other Neurological Family History: Son with cerebral palsy secondary to prematurity Endocrine/Metabolic: Reports: Diabetes, type II, Hypothyroidism, IDDM, Other ( See Below) Other Endocrine/Metabolic Family History: AODM in father and brother, paternal grandmother with IDDM, sister with hypothyroidism Oncologic: Reports: Breast, Prostate, Skin, Other (See Below) Other Oncologic Family History: Maternal uncle with prostate cancer in his 60s, maternal grandmother with breast cancer in her 60s, father with unknown type of skin cancer at age 67, father with liposarcoma at age 68 which was fatal at age 70 - Caffeine Use Caffeine Use: Reports: Soda (2 sodas per day). 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 ED EXAM, GENERAL - Physical Exam Exam: See Below Exam Limited By: No Limitations General Appearance: Alert, WD/WN, No Apparent Distress Eye Exam: Bilateral Eye: EOMI, PERRL Ears: Normal External Exam, Normal Canal Nose: No: Nasal Deformity, Nasal Swelling, Nasal Drainage Throat/Mouth: Normal Lips, Normal Voice, No Airway Compromise, Other (Tongue appears normal size but has linear ulceration/sores along each side of the tongue. Posterior pharanx appears normal. ). No: Inflammation Head: Atraumatic, Normocephalic Neck: Normal Inspection, Supple, Non-Tender, Full Range of Motion Respiratory/Chest: No Respiratory Distress, Lungs Clear, Normal Breath Sounds, No Accessory Muscle Use, Chest Non-Tender Cardiovascular: Regular Rate, Rhythm, No Murmur GI/Abdominal: Normal Bowel Sounds, Soft, Non-Tender, No Distention (Male) Exam: Deferred Rectal (Males) Exam: Deferred Back Exam: Other (mild diffuse tenderness with palpation of soft tissue/muscles) . No: Muscle Spasm, Vertebral Tenderness Extremities: Normal Range of Motion, Normal Capillary Refill, Other (mild tenderness of muscles with palpation diffusely). No: Merry's Sign, Increased Warmth, Mottled, Pallor, Redness Neurological: Alert, Oriented, CN II-XII Intact, Normal Cognition, Normal Gait, No Motor/Sensory Deficits Psychiatric: Normal Affect, Normal Mood Skin Exam: Warm, Dry, Intact, Normal Color EKG INTERPRETATION EKG Date: 06/28/19 Time: 14:03 Rhythm: Other (1 degree AV block) Rate (Beats/Min): 73 [place]: Normal P-Wave: Present QRS: Normal ST-T: Normal QT: Normal Comparison: Other: (similar morphology but now has the 1st degree block) Course - Vital Signs Last Recorded V/S: Last Vital Signs Temp 36.8 C 06/28/19 12:22 Pulse 82 06/28/19 12:22 Resp 18 06/28/19 12:22 BP 139/77 06/28/19 12:22 Pulse Ox 95 06/28/19 12:22 - Orders/Labs/Meds Orders: Active Orders 24 hr Category Date Time Status CBC WITH AUTO DIFF [HEME] Stat Lab 06/28/19 12:46 Ordered COMPREHENSIVE METABOLIC PN,CMP [CHEM] Stat Lab 06/28/19 12:46 Ordered INFLUENZA A+B AG SCREEN [RM] Stat Lab 06/28/19 12:57 Ordered STREP SCRN A RAPID W CULT CONF [RM] Stat Lab 06/28/19 12:58 Ordered UA W/MICROSCOPIC [URIN] Stat Lab 06/28/19 12:46 Ordered Isolation [COMM] Routine Oth 06/28/19 12:58 Ordered Meds: Medications Discontinued Medications Generic Name Dose Route Start Last Admin Trade Name Josselyn PRN Reason Stop Dose Admin Diphenhydramine HCl 50 mg 06/28/19 12:58 Benadryl PO 06/28/19 12:59 ONETIME ONE - Re-Assessments/Exams Free Text/Narrative Re-Assessment/Exam: 06/28/19 13:26 Linear sores noted along sides of tongue could be due to canker/aphthous sores. Linear aspect is more consistent with biting tongue. Patient says these areas feel swollen but no global edema/swelling of tongue appreciated on exam. Anaphylaxis/allergic reaction currently not suspected. Given the global complaints suggestive of developing illness basic labs/influenza/rapid strep requested. Vital signs stable/afebrile. 06/28/19 14:11 [place] code called once it became evident that patient did not know residence/age /year/President during routine questions. Additional labs ordered along with CT of head. By time patient went to CT some of these things were showing improvement. NIHSS = 2 when performed. 03/29/20 14:44 CT of head negative. DDImer elevated. Discussed patient with from [place] [facility] at 1425. He felt that patient likely post-ictal from seizure. Would anticipate sore muscles and headache with seizure. Recommended outpatient evaluation with Neuro along with outpatient contrast MRI of brain and EEG. Plan at this time is to admit patient to observation overnight. Will order lower extremity US bilaterally given elevated DDimer. Patient has no complaint of SOB/chest pain. CT of chest not indicated at this time. MRI truck present tomorrow and it may be possible to obtain MRI study recommended by . Patient to also contact his primary provider's office tomorrow at [place] to arrange for outpatient EEG and referral to Neurology. Will also need MRI referral if we are unable to perform it here tomorrow. Patient later told nurse prior to admission that he was incontinent of small amount of urine this morning. This would also be compatible with seizure event. Departure - Departure Time of Disposition: 14:55 Disposition: Refer to Observation Condition: Good Clinical Impression: First time seizure - Discharge Information *PRESCRIPTION DRUG MONITORING PROGRAM REVIEWED*: Not Applicable *COPY OF PRESCRIPTION DRUG MONITORING REPORT IN PATIENT CAITIE: Not Applicable Referrals: Lorenzo Bledsoe PA-C [Primary Care Provider] - Sepsis Event Note - Evaluation Sepsis Screening Result: No Definite Risk - Focused Exam Vital Signs: Vital Signs Temp Pulse Resp BP Pulse Ox 06/28/19 12:22 36.8 C 82 18 139/77 95 Date Exam was Performed: 06/28/19 Time Exam was Performed: 13:20 - Problem List & Annotations (1) First time seizure SNOMED Code(s): 81252866 Code(s): R56.9 - UNSPECIFIED CONVULSIONS Status: Acute Priority: High Current Visit: Yes Onset Date: ~06/28/19 Annotation/Comment:: Suspected seizure event based on history and presentation/exam. Observe overnight. Will attempt to see if he can have contrast MRI performed tomorrow locally as MRI is here. If not, it will need to be scheduled as an outpatient by primary provider. (2) Elevated d-dimer SNOMED Code(s): 901826892 Code(s): R79.89 - OTHER SPECIFIED ABNORMAL FINDINGS OF BLOOD CHEMISTRY Status: Acute Priority: Medium Current Visit: Yes Annotation/Comment:: No complaints of SOB/chest pain. Has diffuse myalgias in limbs/back that may be secondary to the suspected seizure event. Will order bilateral lower extremity US study for tomorrow. (3) Hypertension SNOMED Code(s): 61832016 Code(s): I10 - ESSENTIAL (PRIMARY) HYPERTENSION Status: Chronic Priority : Low Current Visit: No Onset Date: 12/06/15 Annotation/Comment:: Observe trends Qualifiers: Hypertension type: essential hypertension Qualified Code(s): I10 - Essential (primary) hypertension (4) Dyslipidemia SNOMED Code(s): 688804954 Code(s): E78.5 - HYPERLIPIDEMIA, UNSPECIFIED Status: Chronic Priority: Low Current Visit: No Annotation/Comment:: Continue current medical therapy (5) COPD (chronic obstructive pulmonary disease) SNOMED Code(s): 94999496 Code(s): J44.9 - CHRONIC OBSTRUCTIVE PULMONARY DISEASE, UNSPECIFIED Status : Chronic Priority: Low Current Visit: No Annotation/Comment:: No acute respiratory changes/chest pain/increased SOB Qualifiers: COPD type: emphysema Emphysema type: panlobular Qualified Code(s): J43.1 - Panlobular emphysema (6) Osteoarthritis SNOMED Code(s): 818096909 Code(s): M19.90 - UNSPECIFIED OSTEOARTHRITIS, UNSPECIFIED SITE Status: Chronic Priority: Low Current Visit: No Annotation/Comment:: Stable by history Qualifiers: Osteoarthritis location: multiple joints Osteoarthritis type: primary Qualified Code(s): M15.0 - Primary generalized (osteo)arthritis (7) Mixed anxiety depressive disorder SNOMED Code(s): 607776670 Code(s): F41.8 - OTHER SPECIFIED ANXIETY DISORDERS Status: Chronic Priority: Low Current Visit: No Onset Date: 12/06/15 Annotation/Comment:: Stable by history (8) Hypothyroidism (acquired) SNOMED Code(s): 701933376 Code(s): E03.9 - HYPOTHYROIDISM, UNSPECIFIED Status: Chronic Priority: Low Current Visit: No Annotation/Comment:: Stable by history. Check TSH in AM - Problem List Review Problem List Initiated/Reviewed/Updated: Yes - My Orders Last 24 Hours: My Active Orders 06/28/19 12:46 CBC WITH AUTO DIFF [HEME] Stat COMPREHENSIVE METABOLIC PN,CMP [CHEM] Stat UA W/MICROSCOPIC [URIN] Stat 06/28/19 12:57 INFLUENZA A+B AG SCREEN [RM] Stat 06/28/19 12:58 STREP SCRN A RAPID W CULT CONF [RM] Stat Isolation [COMM] Routine - Assessment/Plan Admission H&P: Please use this note as an admission H&P Last 24 Hours: My Active Orders 06/28/19 12:46 CBC WITH AUTO DIFF [HEME] Stat COMPREHENSIVE METABOLIC PN,CMP [CHEM] Stat UA W/MICROSCOPIC [URIN] Stat 06/28/19 12:57 INFLUENZA A+B AG SCREEN [RM] Stat 06/28/19 12:58 STREP SCRN A RAPID W CULT CONF [RM] Stat Isolation [COMM] Routine Assessment:: as above Plan: as above. Patient stable and suitable for general supervision.
[2019-06-28 13:37] LABS: CHLORIDE,CL 104 mmol/L (98-107); SODIUM,NA 135 mmol/L (136-145)
[2019-06-28] MEDS: diphenhydrAMINE 25 MG Cap PO ONE ×2 (13:41→14:55)
[2019-06-28 14:35] LABS: PTT,PARTIAL THROMBOPLSTIN TIME 22.7 SEC (24.5-32.8)
[2019-06-28] MEDS ORDERED: Acetaminophen 325 MG Tab PO PRN (15:17)
[2019-06-28] MEDS ORDERED: Simvastatin 20 MG Tab PO SCH (20:00)
[2019-06-29] MEDS ORDERED: Levothyroxine 25 MCG Tab PO SCH (08:00)
[2019-06-29 09:25] LABS: CHLORIDE,CL 107 mmol/L (98-107); SODIUM,NA 143 mmol/L (136-145)
[2019-06-29] MEDS ORDERED: Gadobenate Dimeglumine 529 MG/ML 15 ML SDV IVPUSH STA (09:46)
[2019-06-29] MEDS ORDERED: Gadobenate Dimeglumine 529 MG/ML 15 ML SDV ONE (10:10)
[2019-06-29 12:46] VITALS: BP 129/85; PULSE 67
--- NOTE | 2019-06-29 13:12 | PCM.DCSUM1 ---
Discharge Summary - Hospital Course Free Text/Narrative:: Pt admitted with Seizure activity and elevated D-dimer Pt has been stable since admit No further seizure activity Pt had venous doppler today with no DVT and MRI without acute findings Dr Bates had consulted neurology and they suggest follow up in neurology clinic Also suggested not starting medication at this time Diagnosis: Stroke: No - Discharge Data Discharge Date: 06/29/19 Discharge Disposition: Home, Self-Care 01 Condition: Good - Referral to Home Health Primary Care Physician: Lorenzo Bledsoe PA-C - Discharge Diagnosis/Problem(s) (1) Elevated d-dimer SNOMED Code(s): 844469139 ICD Code: R79.89 - OTHER SPECIFIED ABNORMAL FINDINGS OF BLOOD CHEMISTRY Status: Acute Priority: Medium Current Visit: No Problem Details: No complaints of SOB/chest pain. Has diffuse myalgias in limbs/back that may be secondary to the suspected seizure event. Will order bilateral lower extremity US study for tomorrow. Venous doppler negative for DVT on 06/29/19 (2) First time seizure SNOMED Code(s): 51008434 ICD Code: R56.9 - UNSPECIFIED CONVULSIONS Status: Acute Priority: High Current Visit: No Onset Date: ~06/28/19 Problem Details: Suspected seizure event based on history and presentation/exam. Observe overnight. Will attempt to see if he can have contrast MRI performed tomorrow locally as MRI is here. If not, it will need to be scheduled as an outpatient by primary provider. MRI without acute findings on 06/29/19 - Patient Instructions Diet: Regular Diet as Tolerated Activity: As Tolerated Showering/Bathing: May Shower Other/Special Instructions: Follow up in clinic to schedule neurology appointment - Discharge Plan *PRESCRIPTION DRUG MONITORING PROGRAM REVIEWED*: Not Applicable *COPY OF PRESCRIPTION DRUG MONITORING REPORT IN PATIENT CAITIE: Not Applicable Home Medications: Home Meds Cyanocobalamin (Vitamin B12) [Vitamin B12] 1,000 mcg PO DAILY 12/06/15 [History] Simvastatin [Zocor] 20 mg PO BEDTIME 12/06/15 [History] Acetaminophen [Tylenol] 650 mg PO Q6HR PRN 06/28/19 [History] Levothyroxine Sodium [Synthroid] 125 mcg PO DAILY 06/28/19 [History] [place]-3/DHA/Epa/Fish Oil [Fish Oil 1,000 mg Softgel] 1 each PO DAILY 06/28/19 [ History] Patient Handouts: Seizure, Adult Forms: ED Department Discharge Referrals: Lorenzo Bledsoe PA-C [Primary Care Provider] - - Discharge Summary/Plan Comment DC Time >30 min.: No - General Info Date of Service: 06/29/19 Admission Dx/Problem (Free Text: Doing well No complaints No further seizures - Review of Systems General: Reports: No Symptoms HEENT: Reports: No Symptoms Pulmonary: Reports: No Symptoms Cardiovascular: Reports: No Symptoms Gastrointestinal: Reports: No Symptoms Musculoskeletal: Reports: No Symptoms Skin: Reports: No Symptoms Neurological: Reports: Seizure Psychiatric: Reports: No Symptoms - Patient Data Vitals - Most Recent: Last Vital Signs Temp 98.5 F 06/29/19 12:00 Pulse 67 06/29/19 12:00 Resp 16 06/29/19 12:00 BP 129/85 06/29/19 12:00 Pulse Ox 95 06/29/19 12:00 Weight - Most Recent: 209 lb I&O - Last 24 hours: Intake & Output 06/29/19 06/29/19 06/29/19 02:59 10:59 18:59 Intake Total 400 360 240 Balance 400 360 240 Lab Results - Last 24 hrs: Laboratory Results - last 24 hr 06/28/19 06/28/19 06/28/19 Range/Units 13:18 13:18 13:18 WBC 12.0 H (4.0-10.2) K/uL RBC 4.91 (4.33-5.41) M/uL Hgb 15.3 (13.1-16.8) g/dL Hct 43.4 (39.0-49.0) % MCV 88.4 (84.0-98.0) fL MCH 31.2 (28.2-33.3) pg MCHC 35.3 (31.7-36.0) g/dL RDW 12.7 (11.2-14.1) % Plt Count 195 (150-350) K/uL Neut % (Auto) 87.2 H (45.0-80.0) % Lymph % (Auto) 6.5 L (10.0-50.0) % [place] % (Auto) 6.0 (2.0-14.0) % Eos % (Auto) 0.2 (0.0-5.0) % Baso % (Auto) 0.1 (0.0-2.0) % Neut # (Auto) 10.48 H (1.40-7.00) K/uL Lymph # (Auto) 0.78 (0.50-3.50) K/uL [place] # (Auto) 0.72 (0.00-1.00) K/uL Eos # (Auto) 0.02 (0.00-0.50) K/uL Baso # (Auto) 0.01 (0.00-0.20) K/uL PT (9.5-12.0) SEC INR APTT (24.5-32.8) SEC D-Dimer, Quantitative 3290 H (0-400) ng/mL Sodium 135 L (136-145) mmol/L Potassium 3.6 (3.5-5.1) mmol/L Chloride 104 (98-107) mmol/L Carbon Dioxide 23.9 (21.0-32.0) mmol/L BUN 17 (7-18) mg/dL Creatinine 1.21 H (0.51-1.17) mg/dL Est Cr Clr Drug Dosing 74.82 mL/min Estimated GFR (MDRD) > 60 mL/min Glucose 115 H (74-106) mg/dL POC Glucose (65-110) mg/dl Calcium 8.9 (8.5-10.1) mg/dL Magnesium 2.1 (1.8-2.4) mg/dL Total Bilirubin 0.4 (0.2-1.0) mg/dL AST 21 (15-37) U/L ALT 30 (12-78) U/L Alkaline Phosphatase 119 H (46-116) IU/L Creatine Kinase 270 (26-308) U/L Creatine Kinase Index 1.1 (0.0-2.5) % CK-MB (CK-2) 2.90 (0.00-3.60) ng/mL Troponin I 0.000 (0.000-0.056) ng/mL NT-Pro-B Natriuret Pep 93 (0-125) pg/mL Total Protein 7.3 (6.4-8.2) g/dL Albumin 3.8 (3.4-5.0) g/dL TSH, Ultra Sensitive (0.358-3.740) mIU/mL Specimen Type Urine Color Urine Appearance Urine pH (5.0-9.0) Ur Specific [place] (1.005-1.030) Urine Protein (NEGATIVE) mg/dL Urine Glucose (UA) (NEGATIVE) mg/dL Urine Ketones (NEGATIVE) mg/dL Urine Occult Blood (NEGATIVE) Urine Nitrite (NEGATIVE) Urine Bilirubin (NEGATIVE) Urine Urobilinogen (0.2-1.0) E.U./dL Ur Leukocyte Esterase (NEGATIVE) Urine RBC /HPF Urine WBC /HPF Ur Epithelial Cells /LPF Urine Bacteria (NONE TO FEW) /HPF 06/28/19 06/28/19 06/28/19 Range/Units 13:47 14:19 14:25 WBC (4.0-10.2) K/uL RBC (4.33-5.41) M/uL Hgb (13.1-16.8) g/dL Hct (39.0-49.0) % MCV (84.0-98.0) fL MCH (28.2-33.3) pg MCHC (31.7-36.0) g/dL RDW (11.2-14.1) % Plt Count (150-350) K/uL Neut % (Auto) (45.0-80.0) % Lymph % (Auto) (10.0-50.0) % [place] % (Auto) (2.0-14.0) % Eos % (Auto) (0.0-5.0) % Baso % (Auto) (0.0-2.0) % Neut # (Auto) (1.40-7.00) K/uL Lymph # (Auto) (0.50-3.50) K/uL [place] # (Auto) (0.00-1.00) K/uL Eos # (Auto) (0.00-0.50) K/uL Baso # (Auto) (0.00-0.20) K/uL PT 10.0 (9.5-12.0) SEC INR 1.0 APTT 22.7 L (24.5-32.8) SEC D-Dimer, Quantitative (0-400) ng/mL Sodium (136-145) mmol/L Potassium (3.5-5.1) mmol/L Chloride (98-107) mmol/L Carbon Dioxide (21.0-32.0) mmol/L BUN (7-18) mg/dL Creatinine (0.51-1.17) mg/dL Est Cr Clr Drug Dosing mL/min Estimated GFR (MDRD) mL/min Glucose (74-106) mg/dL POC Glucose 98 (65-110) mg/dl Calcium (8.5-10.1) mg/dL Magnesium (1.8-2.4) mg/dL Total Bilirubin (0.2-1.0) mg/dL AST (15-37) U/L ALT (12-78) U/L Alkaline Phosphatase (46-116) IU/L Creatine Kinase (26-308) U/L Creatine Kinase Index (0.0-2.5) % CK-MB (CK-2) (0.00-3.60) ng/mL Troponin I (0.000-0.056) ng/mL NT-Pro-B Natriuret Pep (0-125) pg/mL Total Protein (6.4-8.2) g/dL Albumin (3.4-5.0) g/dL TSH, Ultra Sensitive (0.358-3.740) mIU/mL Specimen Type Urinblad Urine Color Yellow Urine Appearance Clear Urine pH 6.0 (5.0-9.0) Ur Specific [place] 1.020 (1.005-1.030) Urine Protein Negative (NEGATIVE) mg/dL Urine Glucose (UA) Negative (NEGATIVE) mg/dL Urine Ketones Negative (NEGATIVE) mg/dL Urine Occult Blood Negative (NEGATIVE) Urine Nitrite Negative (NEGATIVE) Urine Bilirubin Negative (NEGATIVE) Urine Urobilinogen 0.2 (0.2-1.0) E.U./dL Ur Leukocyte Esterase Negative (NEGATIVE) Urine RBC Not seen /HPF Urine WBC Not seen /HPF Ur Epithelial Cells Occasional /LPF Urine Bacteria Occasional (NONE TO FEW) /HPF 06/29/19 06/29/19 Range/Units 07:22 07:22 WBC 8.6 (4.0-10.2) K/uL RBC 4.80 (4.33-5.41) M/uL Hgb 15.1 (13.1-16.8) g/dL Hct 43.3 (39.0-49.0) % MCV 90.2 (84.0-98.0) fL MCH 31.5 (28.2-33.3) pg MCHC 34.9 (31.7-36.0) g/dL RDW 12.7 (11.2-14.1) % Plt Count 191 (150-350) K/uL Neut % (Auto) 69.1 (45.0-80.0) % Lymph % (Auto) 18.8 (10.0-50.0) % [place] % (Auto) 9.7 (2.0-14.0) % Eos % (Auto) 2.1 (0.0-5.0) % Baso % (Auto) 0.3 (0.0-2.0) % Neut # (Auto) 5.93 (1.40-7.00) K/uL Lymph # (Auto) 1.61 (0.50-3.50) K/uL [place] # (Auto) 0.83 (0.00-1.00) K/uL Eos # (Auto) 0.18 (0.00-0.50) K/uL Baso # (Auto) 0.03 (0.00-0.20) K/uL PT (9.5-12.0) SEC INR APTT (24.5-32.8) SEC D-Dimer, Quantitative (0-400) ng/mL Sodium 143 (136-145) mmol/L Potassium 3.8 (3.5-5.1) mmol/L Chloride 107 (98-107) mmol/L Carbon Dioxide 26.9 (21.0-32.0) mmol/L BUN 14 (7-18) mg/dL Creatinine 1.13 (0.51-1.17) mg/dL Est Cr Clr Drug Dosing 80.12 mL/min Estimated GFR (MDRD) > 60 mL/min Glucose 108 H (74-106) mg/dL POC Glucose (65-110) mg/dl Calcium 8.7 (8.5-10.1) mg/dL Magnesium (1.8-2.4) mg/dL Total Bilirubin (0.2-1.0) mg/dL AST (15-37) U/L ALT (12-78) U/L Alkaline Phosphatase (46-116) IU/L Creatine Kinase (26-308) U/L Creatine Kinase Index (0.0-2.5) % CK-MB (CK-2) (0.00-3.60) ng/mL Troponin I (0.000-0.056) ng/mL NT-Pro-B Natriuret Pep (0-125) pg/mL Total Protein (6.4-8.2) g/dL Albumin (3.4-5.0) g/dL TSH, Ultra Sensitive 3.094 (0.358-3.740) mIU/mL Specimen Type Urine Color Urine Appearance Urine pH (5.0-9.0) Ur Specific [place] (1.005-1.030) Urine Protein (NEGATIVE) mg/dL Urine Glucose (UA) (NEGATIVE) mg/dL Urine Ketones (NEGATIVE) mg/dL Urine Occult Blood (NEGATIVE) Urine Nitrite (NEGATIVE) Urine Bilirubin (NEGATIVE) Urine Urobilinogen (0.2-1.0) E.U./dL Ur Leukocyte Esterase (NEGATIVE) Urine RBC /HPF Urine WBC /HPF Ur Epithelial Cells /LPF Urine Bacteria (NONE TO FEW) /HPF MILENA Results - Last 24 hrs: Microbiology 06/28/19 12:58 Quick Strep Confirmation Culture - Final Throat NO GROUP A STREP ISOLATED REFERENCE RANGE: NEGATIVE Group A Streptococcus Rapid Screen - Final NEGATIVE STREP A SCREEN REFERENCE RANGE: NEGATIVE 06/28/19 12:57 Influenza Type A Antigen Screen - Final Nasal Aspirate, Unspecified NEGATIVE INFLUENZA A VIRUS AG REFERENCE RANGE: NEGATIVE Influenza Type B Antigen Screen - Final NEGATIVE INFLUENZA B VIRUS AG REFERENCE RANGE: NEGATIVE Med Orders - Current: Current Medications Acetaminophen (Tylenol) 650 mg PO Q6HR PRN PRN Reason: Pain Last Admin: 06/29/19 07:26 Dose: 650 mg Levothyroxine Sodium (Levothyroxine) 125 mcg PO DAILY CATHIE Last Admin: 06/29/19 07:19 Dose: 125 mcg Simvastatin (Zocor) 20 mg PO BEDTIME CATHIE Last Admin: 06/28/19 19:56 Dose: 20 mg Discontinued Medications Diphenhydramine HCl (Benadryl) 50 mg PO ONETIME ONE Stop: 06/28/19 12:59 Last Admin: 06/28/19 14:55 Dose: Not Given Gadobenate Dimeglumine (Multihance) 15 ml IVPUSH ONETIME STA Stop: 06/29/19 09:47 Gadobenate Dimeglumine (Multihance) 15 ml .ROUTE .STK-MED ONE Stop: 06/29/19 10:11 - Exam General: Reports: Alert, Oriented HEENT: Reports: Pupils Equal, Pupils Reactive, EOMI Neck: Reports: Supple Lungs: Reports: Clear to Auscultation Cardiovascular: Reports: Regular Rate GI/Abdominal Exam: Non-Tender Extremities: Normal Inspection, No Pedal Edema Neurological: Reports: No New Focal Deficit Psy/Mental Status: Reports: Alert, Normal Affect, Normal Mood
== END 2019-06-29 14:14 | disposition home or self-care (01) ==
LOC: LL.ED 12:20 → LL.MS 14:46 → UNDOADMOB 14:46 → LL.MS 15:10
PROVIDERS: ADMIT Emergency Medicine; ATTEND Family Medicine
DX: R56.9 Unspecified convulsions (principal); R79.89 Other specified abnormal findings of blood chemistry; E78.00 Pure hypercholesterolemia, unspecified; I10 Essential (primary) hypertension; J44.9 Chronic obstructive pulmonary disease, unspecified; E03.9 Hypothyroidism, unspecified; E78.5 Hyperlipidemia, unspecified; M19.90 Unspecified osteoarthritis, unspecified site; F41.8 Other specified anxiety disorders; Z79.890 Hormone replacement therapy; Z79.899 Other long term (current) drug therapy
CPT/HCPCS: 36415; 70450; 70552; 71045; 80048; 80053; 81001; 82550; 82553; 82962; 83735; 83880; 84443; 84484; 85025; 85379; 85610; 85730; 87081; 87430; 87804; 93005; 93970; 99285; A9270; A9577; G0378

== ENCOUNTER 2022-05-26 16:56 | Emergency (ER) | payer BC ==
[2022-05-26 18:14] LABS: CORONAVIRUS COVID-19 NAA POSITIVE (NEGATIVE)
[2022-05-26 18:15] LABS: RESPIRATORY SYNCYTIAL VIR NAA NEGATIVE (NEGATIVE)
[2022-05-26] MEDS ORDERED: Take Home: predniSONE 20 MG, 4 Tab Pack PO ONE (18:21)
[2022-05-26] MEDS ORDERED: methylPREDNISolone Acetate 80 MG/ML SDV IM ONE (18:23)
[2022-05-26 18:59] VITALS: BP 144/89; PULSE 82
== END 2022-05-26 18:52 | disposition home or self-care (01) ==
LOC: LL.ED 16:56
DX: U07.1 COVID-19 (principal); J02.9 Acute pharyngitis, unspecified; E78.00 Pure hypercholesterolemia, unspecified; I10 Essential (primary) hypertension; J44.9 Chronic obstructive pulmonary disease, unspecified; E03.9 Hypothyroidism, unspecified; Z79.899 Other long term (current) drug therapy
CPT/HCPCS: 0241U; 87081; 87430; 96372; 99283; A9270-GY; J1040

== ENCOUNTER 2024-03-01 17:07 | Emergency (ER) | payer BC ==
[2024-03-01 17:09] VITALS: BP 168/115; PULSE 72
[2024-03-01] MEDS: Lidocaine 1% 5 ML VIAL INJECT ONE (17:50)
== END 2024-03-01 17:47 | disposition home or self-care (01) ==
LOC: LL.ED 17:07
DX: S61.012A Laceration without foreign body of left thumb without damage to nail, initial encounter (principal); J44.9 Chronic obstructive pulmonary disease, unspecified; I10 Essential (primary) hypertension; E78.00 Pure hypercholesterolemia, unspecified; E03.9 Hypothyroidism, unspecified; Z79.01 Long term (current) use of anticoagulants; Z79.82 Long term (current) use of aspirin; Z79.899 Other long term (current) drug therapy; W26.0XXA Contact with knife, initial encounter
CPT/HCPCS: 12001; 99282; 99283; J3490

== ENCOUNTER 2024-03-25 09:44 | Emergency (ER) | payer BC ==
[2024-03-25 10:24] LABS: BASOPHILS ABSOLUTE AUTO 0.04 K/uL (0.00-0.20); BASOPHILS PERCENT AUTO 0.5 % (0.0-2.0); EOSINOPHILS ABSOLUTE AUTO 0.17 K/uL (0.00-0.50); EOSINOPHILS PERCENT AUTO 2.1 % (0.0-5.0); HEMATOCRIT 36.1 % (39.0-49.0); HEMOGLOBIN 12.3 g/dL (13.1-16.8); IMMATURE GRAN ABSOLUTE AUTO 0.02 10^3/uL (0.00-0.04); IMMATURE GRAN PERCENT AUTO 0.2 % (0.0-0.4); LYMPHOCYTES ABSOLUTE AUTO 1.34 K/uL (0.50-3.50); LYMPHOCYTES PERCENT AUTO 16.5 % (10.0-50.0); MEAN CORPUSCULAR HEMOGLOBIN 30.4 pg (28.2-33.3); MEAN CORPUSCULAR HGB CONC 34.1 g/dL (31.7-36.0); MEAN CORPUSCULAR VOLUME 89.4 fL (84.0-98.0); MONOCYTES ABSOLUTE AUTO 0.65 K/uL (0.00-1.00); NEUTROPHILS ABSOLUTE AUTO 5.92 K/uL (1.40-7.00); NEUTROPHILS PERCENT AUTO 72.7 % (45.0-80.0); PLATELET COUNT,PLT 221 K/uL (150-350); RED BLOOD CELL COUNT 4.04 M/uL (4.33-5.41); RED CELL DISTRIBUTION WIDTH 12.5 % (11.2-14.1); WHITE BLOOD CELL COUNT,WBC 8.1 K/uL (4.0-10.2)
[2024-03-25 10:44] LABS: ALBUMIN 3.3 g/dL (3.4-5.0); BILIRUBIN TOTAL 0.3 mg/dL (0.2-1.0); CALCIUM 8.3 mg/dL (8.5-10.1); CARBON DIOXIDE,CO2 24.5 mmol/L (21.0-32.0); CREATININE 1.29 mg/dL (0.51-1.17); EST CRCL DRUG DOSING (CG) 66.84 mL/min; POTASSIUM,K 4.4 mmol/L (3.5-5.1); PROTEIN TOTAL,TP 6.6 g/dL (6.4-8.2)
[2024-03-25 10:55] LABS: ANION GAP 12.9 meq/L (7-15)
[2024-03-25 11:02] LABS: INR 2.2 (0.9-1.1); PROTHROMBIN TIME 21.4 SEC (9.0-11.1)
[2024-03-25 11:20] LABS: APPEARANCE,URINE SLIGHTLY CLOUDY; BILIRUBIN,URINE NEGATIVE (NEGATIVE); COLOR,URINE YELLOW; GLUCOSE,URINE NEGATIVE (NEGATIVE); KETONES,URINE NEGATIVE (NEGATIVE); LEUKOCYTE ESTERASE,URINE NEGATIVE (NEGATIVE); NITRITE,URINE NEGATIVE (NEGATIVE); OCCULT BLOOD,URINE NEGATIVE (NEGATIVE); PH,URINE 5.5 (5.0-9.0); PROTEIN,URINE NEGATIVE (NEGATIVE); UROBILINOGEN,URINE 0.2 E.U./dL (0.2-1.0)
[2024-03-25 11:24] LABS: LACTIC ACID 1.2 mmol/L (0.4-2.0)
[2024-03-25] MEDS: Sodium Chloride 0.9% 500 ML IV SCH (11:50)
[2024-03-25] MEDS: Sodium Chloride 0.9% 10 ML Syringe FLUSH PRN (11:51)
[2024-03-25] MEDS: Pantoprazole 40 MG Vial IVPUSH ONE (11:55)
[2024-03-25] MEDS: Sucralfate 1 GM Tab PO ONE (13:37)
[2024-03-25 13:43] VITALS: BP 119/83; PULSE 100
== END 2024-03-25 13:43 | disposition home or self-care (01) ==
LOC: LL.ED 09:44
DX: K92.2 Gastrointestinal hemorrhage, unspecified (principal); I10 Essential (primary) hypertension; E78.00 Pure hypercholesterolemia, unspecified; J44.9 Chronic obstructive pulmonary disease, unspecified; E03.9 Hypothyroidism, unspecified; Z90.49 Acquired absence of other specified parts of digestive tract; Z79.899 Other long term (current) drug therapy; Z79.890 Hormone replacement therapy; Z79.82 Long term (current) use of aspirin; Z79.01 Long term (current) use of anticoagulants
CPT/HCPCS: 36415; 80053; 81003; 82272; 83605; 85025; 85610; 96361; 96374; 99284; 99284-25; A9270-GY; J2470; J7040